=== PATIENT | female | born 1985 | race African-American/Black ===

== ENCOUNTER 2022-12-29 05:49 | Inpatient (IN) | payer MEDICAID ==
[~2022-12-29] VITALS: Ht 171.4 cm; Wt 104.3 kg
[2022-12-29] MEDS ORDERED: RHO(D) IMMUNE GLOBULIN 300 MCG/SYR IM PRN (07:15)
[2022-12-29] MEDS ORDERED: METHYLERGONOVINE MALEATE 0.2 MG/ML IM PRN (07:15)
[2022-12-29] MEDS ORDERED: OXYTOCIN 30 UNITS/500ML NS PMX 500 ML IV SCH (07:15)
[2022-12-29] MEDS ORDERED: NALOXONE HCL 0.4 MG/ML 1ML VIAL IM PRN (07:15)
[2022-12-29] MEDS ORDERED: IBUPROFEN 400MG TABLET PO PRN (07:15)
[2022-12-29] MEDS: IBUPROFEN 800MG TABLET PO PRN ×2 (07:46→16:40)
[2022-12-29] MEDS ORDERED: LACTATED RINGERS 1,000 ML IV SCH (08:00)
[2022-12-29 08:18] VITALS: BP 132/74
[2022-12-29 08:33] VITALS: BP 123/81
[2022-12-29 09:00] VITALS: BP 130/68
[2022-12-29] MEDS ORDERED: TETANUS, DIPHTHERIA, PERTUSSIS VAC/PF 0.5ML (>10YR OLD) IM ONE (10:00)
[2022-12-29 11:07] LABS: BASOPHILS % 0.2 % (0.0-2.0); EOSINOPHILS % 0.1 % (0.0-5.0); HEMATOCRIT. 30.5 % (36.0-48.0); HEMOGLOBIN. 9.8 g/dL (12.0-16.0); LYMPHOCYTES % 16.4 % (20.0-50.0); MEAN CORPUSCULAR HEMOGLOBIN 23.5 pg (28.0-32.0); MEAN CORPUSCULAR VOLUME 73.4 fL (81.0-99.0); MEAN PLATELET VOLUME 9.3 fl (7.4-10.4); MONOCYTES % 5.7 % (2.0-8.0); NEUTROPHILS % 77.6 % (40.0-76.0); PLATELET 201 x1000/uL (130-400); RED BLOOD CELL COUNT 4.15 mill/uL (4.2-5.4); RED CELL DISTRIBUTION WIDTH 17.7 % (11.6-14.6)
[2022-12-29 11:17] LABS: PARTIAL THROMBOPLASTIN TIME 27.3 sec (23.4-31.0); PROTHROMBIN TIME 10.4 sec (9.6-11.0)
[2022-12-29 13:30] LABS: HEPATITIS B SURFACE ANTIGEN NEGATIVE
[2022-12-29 16:01] LABS: CLARITY URINE TURBID (CLEAR); COLOR URINE RED (YELLOW); KETONES URINE NEGATIVE (NEGATIVE); LEUKOCYTE ESTERASE URINE 3+ (NEGATIVE); NITRITE URINE POSITIVE (NEGATIVE); OCCULT BLOOD URINE 3+ (NEGATIVE); PH URINE 6.5 (4.5-8.0); PROTEIN URINE 2+ (NEGATIVE); SPECIFIC GRAVITY URINE 1.009 (1.005-1.030); UROBILINOGEN URINE 0.2 E.U./dL (0.2-1.0)
[2022-12-29 16:19] LABS: *BARBITURATES SCREEN URINE NEGATIVE (NEGATIVE); *BENZODIAZEPINES SCREEN URINE NEGATIVE (NEGATIVE); *COCAINE SCREEN URINE NEGATIVE (NEGATIVE); METHADONE URINE SCREEN NEGATIVE (NEGATIVE); OPIATES URINE SCREEN NEGATIVE (NEGATIVE); PHENCYCLIDINE URINE SCREEN NEGATIVE (NEGATIVE)
[2022-12-29 16:23] LABS: *AMPHETAMINES SCREEN URINE PRESUMTIVE POSITIVE (NEGATIVE); CANNABINOID URINE SCREEN PRESUMTIVE POSITIVE (NEGATIVE)
[2022-12-29 16:24] VITALS: BP 136/78
[2022-12-29 19:30] VITALS: BP 127/60
[2022-12-30] MEDS: IBUPROFEN 800MG TABLET PO PRN ×3 (01:11→21:08)
[2022-12-30 04:00] VITALS: BP 101/69
[2022-12-30 08:00] VITALS: BP 130/68
[2022-12-30 08:17] LABS: BASOPHILS % 0.4 % (0.0-2.0); EOSINOPHILS % 0.8 % (0.0-5.0); HEMATOCRIT. 28.9 % (36.0-48.0); HEMOGLOBIN. 9.1 g/dL (12.0-16.0); LYMPHOCYTES % 27.2 % (20.0-50.0); MEAN CORPUSCULAR HEMOGLOBIN 22.9 pg (28.0-32.0); MEAN CORPUSCULAR VOLUME 72.9 fL (81.0-99.0); MEAN PLATELET VOLUME 9.5 fl (7.4-10.4); MONOCYTES % 6.9 % (2.0-8.0); NEUTROPHILS % 64.7 % (40.0-76.0); PLATELET 223 x1000/uL (130-400); RED BLOOD CELL COUNT 3.96 mill/uL (4.2-5.4); RED CELL DISTRIBUTION WIDTH 17.3 % (11.6-14.6)
[2022-12-30] MEDS: FERROUS SULFATE 325MG TABLET PO SCH ×2 (08:42→17:30)
[2022-12-30] MEDS: PRENATAL VIT/FE FUMARATE/FA TABLET PO SCH (08:42)
[2022-12-30 15:43] VITALS: BP 101/77
[2022-12-30 19:30] VITALS: BP 114/69
[2022-12-31 04:00] VITALS: BP 129/23
[2022-12-31 07:30] VITALS: BP 129/87
[2022-12-31] MEDS: IBUPROFEN 800MG TABLET PO PRN (08:18)
[2022-12-31] MEDS: FERROUS SULFATE 325MG TABLET PO SCH (08:18)
[2022-12-31] MEDS: PRENATAL VIT/FE FUMARATE/FA TABLET PO SCH (08:18)
[2022-12-31] MEDS ORDERED: IBUP-2030 PO (10:31)
[2022-12-31] MEDS ORDERED: MULT-1146 MT (10:31)
[2022-12-31] MEDS ORDERED: FERR-63 PO (10:31)
== END 2022-12-31 10:35 | disposition home or self-care (01) | DRG 560 ==
LOC: 8 EST LDRP 05:49 → OBSVTOIN 05:49 → 8EST 08:22
PROVIDERS: ADMIT Obstetrics & Gynecology; ATTEND Obstetrics & Gynecology
PROC: 10E0XZZ Delivery of Products of Conception, External Approach (ICD-10-PCS; principal; 2022-12-29)
DX: O69.81X0 Labor and delivery complicated by cord around neck, without compression, not applicable or unspecified (principal); Z37.0 Single live birth; D62 Acute posthemorrhagic anemia; Z3A.00 Weeks of gestation of pregnancy not specified; O77.0 Labor and delivery complicated by meconium in amniotic fluid; O99.02 Anemia complicating childbirth; O99.324 Drug use complicating childbirth; F15.10 Other stimulant abuse, uncomplicated; F12.10 Cannabis abuse, uncomplicated; Z83.3 Family history of diabetes mellitus; Z80.1 Family history of malignant neoplasm of trachea, bronchus and lung
CPT/HCPCS: 36415; 80305; 80349; 81003; 85025; 86592; 86703; 86762; 86850; 86900; 87340; 90715; 99281

== ENCOUNTER 2024-04-20 08:35 | Emergency (ER) | payer MEDICAID ==
[~2024-04-20] VITALS: Ht 170.2 cm; Wt 85.0 kg
[~2024-04-20 08:35] MED LIST: FERR-63 PO; IBUP-2030 PO; MULT-1146 MT
[2024-04-20 08:54] VITALS: BP 155/85; PULSE 68; RESP 16; TEMP 98.3; O2SAT 100
[2024-04-20 09:08] LABS: CLARITY URINE CLOUDY (CLEAR); COLOR URINE YELLOW (YELLOW); GLUCOSE URINE NEGATIVE (NEGATIVE); KETONES URINE NEGATIVE (NEGATIVE); LEUKOCYTE ESTERASE URINE 3+ (NEGATIVE); NITRITE URINE NEGATIVE (NEGATIVE); OCCULT BLOOD URINE 1+ (NEGATIVE); PROTEIN URINE TRACE (NEGATIVE); UROBILINOGEN URINE 0.2 E.U./dL (0.2-1.0)
[2024-04-20 09:36] LABS: RBC URINE 0-2 /hpf (0-2); SQUAMOUS EPITHELIAL CELL URINE 1+ /lpf (RARE/1+); WBC URINE 25-50 /hpf (0-2); YEAST URINE NONE SEEN
[2024-04-20 09:37] LABS: BACTERIA URINE 1+
[2024-04-20] MEDS ORDERED: CEPH500C2 MT (11:05)
[2024-04-20] MEDS ORDERED: IBUP-2029 MT (11:05)
== END 2024-04-20 13:57 | disposition home or self-care (01) ==
LOC: ER 08:35
DX: N39.0 Urinary tract infection, site not specified (principal)
CPT/HCPCS: 81003; 87077; 87186; 99283